=== PATIENT | male | born 1945 | race Hispanic/Latino ===

== ENCOUNTER 2023-07-30 11:44 | Inpatient (IN) | payer MEDICARE, MEDICAID ==
[2023-07-30] MEDS ORDERED: Bisacodyl 10 MG SUPP PR PRN (15:17)
[2023-07-30 19:51] VITALS: BMI 23.1
[2023-07-30] MEDS: Mometasone/Formoterol 200/5 60 PUFF INH SCH (21:06)
[2023-07-30] MEDS: Magnesium Oxide 400 MG TAB PO SCH (21:07)
[2023-07-30] MEDS: Famotidine 20 MG TAB PO SCH (21:07)
[2023-07-30] MEDS: Montelukast Sodium 10 mg Tablet PO SCH (21:07)
[2023-07-31 06:06] LABS: Anion Gap 13 mmol/L (10-20); BUN (Urea Nitrogen) 19 mg/dL (8.4-25.7); Calc. Creatinine Clearance 114 mL/min (70-130); Calcium 7.8 mg/dL (7.8-10.44); Carbon Dioxide 22 mmol/L (23-31); Chloride 104 mmol/L (98-107); Estimated GFR 102; Glucose 136 mg/dL (83-110); Sodium 136 mmol/L (136-145)
[2023-07-31 06:26] LABS: Critical Call Chemistry NUR.FCL@0620; Potassium 2.6 mmol/L (3.5-5.1)
[2023-07-31 06:43] LABS: Hematocrit 40.2 % (42.0-52.0); Hemoglobin 14.4 g/dL (14.0-18.0); Mean Corpuscular HGB CONC 35.8 g/dL (32.0-36.0); Mean Corpuscular Hemoglobin 32.3 pg (27.0-31.0); Mean Corpuscular Volume 90.1 fl (78.0-98.0); Mean Platelet Volume 5.9 fL (7.4-10.4); Platelet Count 98 10x3/uL (130-400); RBC Distribution Width 10.4 % (11.5-14.5); Red Blood Cell (RBC) Count 4.46 mill/uL (4.70-6.10); White Blood Cell (WBC) Count 24.5 10x3/uL (4.8-10.8)
[2023-07-31 06:44] LABS: Band 3 % (5-11); Lymphocytes 3 % (21-51); MDiff Complete? YES; Monocytes 4 % (0-10); Neutrophil 90 % (42-75); Platelet Adequacy Comment Appears Decreased
[2023-07-31] MEDS: DULoxetine 30 MG CAP PO SCH (10:29)
[2023-07-31] MEDS: Folic Acid 1 MG TAB PO SCH (10:29)
[2023-07-31] MEDS: Enoxaparin 40 MG (0.4 mL) SYRINGE SC SCH (10:30)
[2023-07-31] MEDS: Potassium Chloride 20 MEQ TAB PO SCH (10:30)
[2023-07-31] MEDS: Fish Oil 1,000 MG CAP PO SCH (10:31)
[2023-07-31] MEDS: Rivastigmine 9.5mg/24 Hour PATCH TOP SCH (10:32)
[2023-07-31] MEDS: Tamsulosin HCl 0.4 MG CAP PO SCH (10:33)
[2023-07-31] MEDS: Calcium Carbonate 500 MG TAB PO SCH (10:33)
[2023-07-31] MEDS: Spironolactone 25 MG TAB PO SCH (10:34)
[2023-07-31] MEDS: NALTREXONE HCL 50 MG PO SCH (10:55)
[2023-07-31] MEDS: Albuterol 200 PUFF (6.7GM INHALER) INH PRN (12:19)
[2023-07-31] MEDS: Meropenem 1 GM in Sodium Chloride 0.9% 100 ML IVPB SCH ×2 (12:54→20:54)
[2023-07-31 12:59] LABS: Bilirubin Negative (Negative); Blood, Urine Trace (Negative); Glucose, Urine (Dipstick) Negative (Negative); Ketone, Urine Negative (Negative); Leukocyte Negative (Negative); Nitrite Positive (Negative); Protein, Urine (Dipstick) Negative (Neg-Trace); Urobilinogen 0.2 mg/dL (Less than 2)
[2023-07-31 13:07] LABS: Bacteria/HPF 3+ HPF (None Seen); CAUTI Indications for Culture Alt mental st,lethar; Clarity Hazy (Clear); RBC/HPF 0-3 HPF (0-3); Squamous Epithelial 0-3 HPF (0-3); WBC/HPF 0-3 HPF (0-3)
[2023-07-31 13:08] LABS: Urine Culture Reflex No No
[2023-07-31] MEDS ORDERED: Ibuprofen 200 MG TAB PO PRN (20:02)
[2023-07-31] MEDS: Ibuprofen 200 MG TAB PO PRN (21:20)
[2023-08-01 06:10] LABS: Anion Gap 10 mmol/L (10-20); BUN (Urea Nitrogen) 19 mg/dL (8.4-25.7); Calc. Creatinine Clearance 123 mL/min (70-130); Calcium 7.7 mg/dL (7.8-10.44); Carbon Dioxide 24 mmol/L (23-31); Chloride 109 mmol/L (98-107); Estimated GFR 104; Glucose 112 mg/dL (83-110); Sodium 140 mmol/L (136-145)
[2023-08-01 07:01] LABS: #Basophils 0.1 thou/uL (0.0-0.2); #Monocytes 0.9 thou/uL (0.11-0.59); #Neutrophils 15.7 thou/uL (1.40-6.50); %Basophils 0.7 % (0.0-1.0); %Eosinophils 0.1 % (0.0-10.0); %Lymphocytes 4.6 % (21.0-51.0); %Monocytes 5.2 % (0.0-10.0); %Neutrophils 89.3 % (42.0-75.0); Band 1 % (5-11); Hematocrit 38.3 % (42.0-52.0); Hemoglobin 13.6 g/dL (14.0-18.0); Lymphocytes 5 % (21-51); MDiff Complete? YES; Mean Corpuscular HGB CONC 35.6 g/dL (32.0-36.0); Mean Corpuscular Hemoglobin 32.1 pg (27.0-31.0); Mean Corpuscular Volume 90.2 fl (78.0-98.0); Mean Platelet Volume 6.8 fL (7.4-10.4); Monocytes 6 % (0-10); Neutrophil 88 % (42-75); Platelet Adequacy Comment Appears Decreased; Platelet Count 65 10x3/uL (130-400); RBC Distribution Width 10.7 % (11.5-14.5); Red Blood Cell (RBC) Count 4.24 mill/uL (4.70-6.10); White Blood Cell (WBC) Count 17.6 10x3/uL (4.8-10.8)
[2023-08-01] MEDS: Potassium Chloride 20 MEQ TAB PO SCH (09:54)
[2023-08-01] MEDS: Digoxin 0.125 MG TAB PO SCH (09:55)
[2023-08-01] MEDS ORDERED: Nystatin Powder 15 GM BOT TOP PRN (11:29)
[2023-08-01] MEDS: Nystatin 500,000 UNITS/5 ML UDCUP SSW SCH (13:05)
[2023-08-01] MEDS: Cyclobenzaprine 10 MG TAB PO PRN (18:04)
[2023-08-02 06:28] LABS: Anion Gap 13 mmol/L (10-20); BUN (Urea Nitrogen) 17 mg/dL (8.4-25.7); Calc. Creatinine Clearance 131 mL/min (70-130); Calcium 7.7 mg/dL (7.8-10.44); Carbon Dioxide 22 mmol/L (23-31); Chloride 109 mmol/L (98-107); Estimated GFR 106; Glucose 88 mg/dL (83-110); Potassium 3.4 mmol/L (3.5-5.1); Sodium 141 mmol/L (136-145)
[2023-08-02 07:14] LABS: #Basophils 0.1 thou/uL (0.0-0.2); #Lymphocytes 0.8 thou/uL (1.20-3.40); #Monocytes 0.7 thou/uL (0.11-0.59); #Neutrophils 16.5 thou/uL (1.40-6.50); %Basophils 0.4 % (0.0-1.0); %Eosinophils 0.1 % (0.0-10.0); %Lymphocytes 4.3 % (21.0-51.0); %Monocytes 3.9 % (0.0-10.0); %Neutrophils 91.3 % (42.0-75.0); Hematocrit 40.6 % (42.0-52.0); Hemoglobin 14.3 g/dL (14.0-18.0); Mean Corpuscular HGB CONC 35.3 g/dL (32.0-36.0); Mean Corpuscular Hemoglobin 32.5 pg (27.0-31.0); Mean Corpuscular Volume 92.2 fl (78.0-98.0); Mean Platelet Volume 5.9 fL (7.4-10.4); Platelet Adequacy Comment Appears Decreased; Platelet Count 70 10x3/uL (130-400); RBC Distribution Width 11.1 % (11.5-14.5); White Blood Cell (WBC) Count 18.1 10x3/uL (4.8-10.8)
[2023-08-02 07:25] LABS: MDiff Complete? YES
[2023-08-02] MEDS: Thiamine 100 MG TAB PO SCH (09:27)
[2023-08-02] MEDS: Potassium Chloride 20 MEQ TAB PO SCH (09:27)
[2023-08-02] MEDS: Nystatin 500,000 UNITS/5 ML UDCUP SSW SCH (17:01)
[2023-08-03 06:15] LABS: Anion Gap 13 mmol/L (10-20); BUN (Urea Nitrogen) 13 mg/dL (8.4-25.7); Calc. Creatinine Clearance 126 mL/min (70-130); Carbon Dioxide 23 mmol/L (23-31); Chloride 109 mmol/L (98-107); Estimated GFR 105; Glucose 88 mg/dL (83-110); Potassium 3.3 mmol/L (3.5-5.1); Sodium 142 mmol/L (136-145)
[2023-08-03 06:21] LABS: #Basophils 0.1 thou/uL (0.0-0.2); #Eosinphils 0.1 thou/uL (0.0-0.7); #Lymphocytes 0.8 thou/uL (1.20-3.40); #Neutrophils 13.6 thou/uL (1.40-6.50); %Basophils 0.4 % (0.0-1.0); %Eosinophils 0.9 % (0.0-10.0); %Lymphocytes 5.4 % (21.0-51.0); %Monocytes 6.6 % (0.0-10.0); %Neutrophils 86.8 % (42.0-75.0); Hematocrit 37.6 % (42.0-52.0); Hemoglobin 13.4 g/dL (14.0-18.0); Lymphocytes 4 % (21-51); MDiff Complete? YES; Mean Corpuscular HGB CONC 35.5 g/dL (32.0-36.0); Mean Corpuscular Hemoglobin 32.6 pg (27.0-31.0); Mean Corpuscular Volume 91.9 fl (78.0-98.0); Mean Platelet Volume 6.4 fL (7.4-10.4); Monocytes 6 % (0-10); Neutrophil 90 % (42-75); Platelet Adequacy Comment Appears Decreased; Platelet Count 67 10x3/uL (130-400); RBC Distribution Width 11.3 % (11.5-14.5); Red Blood Cell (RBC) Count 4.09 mill/uL (4.70-6.10); White Blood Cell (WBC) Count 15.7 10x3/uL (4.8-10.8)
[2023-08-03 14:18] LABS: Calcium 7.6 mg/dL (7.8-10.44)
[2023-08-05] MEDS: hydrOXYzine 25 MG TAB PO PRN (23:44)
[2023-08-07] MEDS: Fluconazole 100 MG TAB PO SCH (20:51)
[2023-08-08] MEDS ORDERED: Fluconazole 100 MG TAB PO SCH (09:00)
[2023-08-08] MEDS: traMADol HCl 50 MG TAB PO PRN (19:53)
[2023-08-09 09:51] LABS: AST (SGOT) 17 U/L (5-34); Potassium 4.1 mmol/L (3.5-5.1); Protein, Total 3.9 g/dL (5.8-8.1)
[2023-08-09 09:54] LABS: ALT (SGPT) 33 U/L (8-55); Albumin 2.1 g/dL (3.4-4.8); Alkaline Phosphatase 70 U/L (40-110); Anion Gap 12 mmol/L (10-20); BUN (Urea Nitrogen) 5 mg/dL (8.4-25.7); Bilirubin, Total 0.9 mg/dL (0.2-1.2); Calc. Creatinine Clearance 134 mL/min (70-130); Calcium 7.8 mg/dL (7.8-10.44); Carbon Dioxide 24 mmol/L (23-31); Chloride 104 mmol/L (98-107); Estimated GFR 107; Glucose 82 mg/dL (83-110); Sodium 135 mmol/L (136-145)
[2023-08-10 08:46] LABS: #Eosinphils 0.1 thou/uL (0.0-0.7); #Lymphocytes 1.1 thou/uL (1.20-3.40); #Monocytes 0.4 thou/uL (0.11-0.59); #Neutrophils 3.1 thou/uL (1.40-6.50); %Basophils 0.9 % (0.0-1.0); %Eosinophils 2.9 % (0.0-10.0); %Lymphocytes 23.1 % (21.0-51.0); %Monocytes 7.5 % (0.0-10.0); %Neutrophils 65.5 % (42.0-75.0); Hematocrit 33.9 % (42.0-52.0); Hemoglobin 11.9 g/dL (14.0-18.0); Mean Corpuscular HGB CONC 35.2 g/dL (32.0-36.0); Mean Corpuscular Hemoglobin 32.3 pg (27.0-31.0); Mean Corpuscular Volume 91.7 fl (78.0-98.0); Mean Platelet Volume 6.3 fL (7.4-10.4); Platelet Count 156 10x3/uL (130-400); RBC Distribution Width 11.4 % (11.5-14.5); Red Blood Cell (RBC) Count 3.69 mill/uL (4.70-6.10); White Blood Cell (WBC) Count 4.7 10x3/uL (4.8-10.8)
[2023-08-11] MEDS ORDERED: traMADol HCl 50 MG TAB PO PRN (15:59)
[2023-08-11] MEDS: traMADol HCl 50 MG TAB PO PRN (21:30)
[2023-08-15 09:29] LABS: #Basophils 0.1 thou/uL (0.0-0.2); #Eosinphils 0.1 thou/uL (0.0-0.7); #Lymphocytes 2.1 thou/uL (1.20-3.40); #Monocytes 0.6 thou/uL (0.11-0.59); #Neutrophils 3.5 thou/uL (1.40-6.50); %Basophils 1.3 % (0.0-1.0); %Eosinophils 1.5 % (0.0-10.0); %Lymphocytes 32.7 % (21.0-51.0); %Neutrophils 55.5 % (42.0-75.0); Hematocrit 37.3 % (42.0-52.0); Mean Corpuscular HGB CONC 34.8 g/dL (32.0-36.0); Mean Corpuscular Hemoglobin 31.8 pg (27.0-31.0); Mean Corpuscular Volume 91.3 fl (78.0-98.0); Mean Platelet Volume 5.5 fL (7.4-10.4); Platelet Count 470 10x3/uL (130-400); RBC Distribution Width 11.2 % (11.5-14.5); Red Blood Cell (RBC) Count 4.08 mill/uL (4.70-6.10); White Blood Cell (WBC) Count 6.3 10x3/uL (4.8-10.8)
[2023-08-15 09:44] LABS: Digoxin 0.68 ng/mL (0.8-2.0)
[2023-08-15 09:46] LABS: ALT (SGPT) 23 U/L (8-55); AST (SGOT) 18 U/L (5-34); Albumin 2.9 g/dL (3.4-4.8); Alkaline Phosphatase 95 U/L (40-110); Anion Gap 13 mmol/L (10-20); BUN (Urea Nitrogen) 14 mg/dL (8.4-25.7); Bilirubin, Total 0.6 mg/dL (0.2-1.2); Calc. Creatinine Clearance 108 mL/min (70-130); Calcium 8.9 mg/dL (7.8-10.44); Carbon Dioxide 24 mmol/L (23-31); Chloride 100 mmol/L (98-107); Estimated GFR 100; Globulin 2.6 g/dL (2.4-3.5); Glucose 98 mg/dL (83-110); Protein, Total 5.5 g/dL (5.8-8.1); Sodium 132 mmol/L (136-145)
[2023-08-15] MEDS: Digoxin 0.125 MG TAB PO SCH (10:51)
[2023-08-15 11:32] LABS: Bilirubin Negative (Negative); Blood, Urine Negative (Negative); Clarity Clear (Clear); Glucose, Urine (Dipstick) Negative (Negative); Ketone, Urine Negative (Negative); Leukocyte Negative (Negative); Nitrite Negative (Negative); Protein, Urine (Dipstick) Negative (Neg-Trace); Urobilinogen 0.2 mg/dL (Less than 2)
[2023-08-15 11:35] LABS: CAUTI Indications for Culture Alt mental st,lethar; RBC/HPF None Seen HPF (0-3); Squamous Epithelial 0-3 HPF (0-3); WBC/HPF 0-3 HPF (0-3)
[2023-08-15 11:37] LABS: Bacteria/HPF Rare-Few HPF (None Seen)
[2023-08-15 11:38] LABS: Urine Culture Reflex No No
[2023-08-15] MEDS: Sodium Chloride 0.9% 500 ML IV SCH (15:07)
[2023-08-16] MEDS: Digoxin 0.125 MG TAB PO SCH (08:42)
[2023-08-16] MEDS ORDERED: Albuterol 2.5 MG (3 mL) NEB NEB SCH (13:00)
[2023-08-16] MEDS: Ipratropium/Albuterol 3 ML NEB NEB SCH (14:22)
[2023-08-18] MEDS ORDERED: Pancrelipase DR 12,000 1 CAP PO PRN (11:57)
[2023-08-18] MEDS: Pancrelipase DR 12,000 1 CAP PO SCH (12:04)
[2023-08-18] MEDS: Ipratropium/Albuterol 3 ML NEB NEB SCH (12:08)
[2023-08-22] MEDS: traMADol HCl 50 MG TAB PO PRN (08:41)
[2023-08-22] MEDS: Bisacodyl 5 MG TAB PO PRN (09:00)
[2023-08-22] MEDS: Senokot S 8.6-50 MG TAB PO PRN (20:50)
[2023-08-26] MEDS: Furosemide 20 MG TAB PO SCH (09:25)
[2023-08-27 05:13] LABS: #Basophils 0.1 thou/uL (0.0-0.2); #Monocytes 0.7 thou/uL (0.11-0.59); #Neutrophils 5.4 thou/uL (1.40-6.50); %Basophils 1.1 % (0.0-1.0); %Eosinophils 0.2 % (0.0-10.0); %Lymphocytes 24.7 % (21.0-51.0); %Monocytes 8.5 % (0.0-10.0); %Neutrophils 65.5 % (42.0-75.0); Hematocrit 36.4 % (42.0-52.0); Hemoglobin 12.8 g/dL (14.0-18.0); Mean Corpuscular HGB CONC 35.3 g/dL (32.0-36.0); Mean Corpuscular Hemoglobin 31.7 pg (27.0-31.0); Mean Corpuscular Volume 89.8 fl (78.0-98.0); Mean Platelet Volume 5.3 fL (7.4-10.4); Platelet Count 290 10x3/uL (130-400); RBC Distribution Width 11.2 % (11.5-14.5); Red Blood Cell (RBC) Count 4.05 mill/uL (4.70-6.10); White Blood Cell (WBC) Count 8.2 10x3/uL (4.8-10.8)
[2023-08-27 05:26] LABS: Anion Gap 12 mmol/L (10-20); BUN (Urea Nitrogen) 13 mg/dL (8.4-25.7); Calc. Creatinine Clearance 101 mL/min (70-130); Calcium 8.7 mg/dL (7.8-10.44); Carbon Dioxide 20 mmol/L (23-31); Chloride 106 mmol/L (98-107); Estimated GFR 98; Glucose 96 mg/dL (83-110); Potassium 3.9 mmol/L (3.5-5.1); Sodium 134 mmol/L (136-145)
[2023-08-27] MEDS: Furosemide 20 MG TAB PO SCH (08:42)
[2023-09-02 16:22] LABS: Bilirubin Negative (Negative); Blood, Urine Moderate (Negative); Glucose, Urine (Dipstick) Negative (Negative); Ketone, Urine Negative (Negative); Leukocyte Trace (Negative); Nitrite Negative (Negative); Protein, Urine (Dipstick) Negative (Neg-Trace); Specific Gravity, Urine 1.015 (1.005-1.030); Urobilinogen 0.2 mg/dL (Less than 2); pH, Urine 6.5 (5.0-9.0)
[2023-09-02 16:23] LABS: Clarity Hazy (Clear)
[2023-09-02 16:29] LABS: Bacteria/HPF 2+ HPF (None Seen); Squamous Epithelial 0-3 HPF (0-3); WBC/HPF 0-3 HPF (0-3)
[2023-09-04 05:59] VITALS: TEMP 98
[2023-09-04 10:20] VITALS: BP 103/65
== END 2023-09-04 18:30 | DRG 947 ==
LOC: BURMED 14:30
PROVIDERS: ADMIT Family Medicine; ATTEND Nurse Practitioner
DX: R53.81 Other malaise (principal); J69.0 Pneumonitis due to inhalation of food and vomit; J96.00 Acute respiratory failure, unspecified whether with hypoxia or hypercapnia; J44.1 Chronic obstructive pulmonary disease with (acute) exacerbation; I48.91 Unspecified atrial fibrillation; F03.90 Unspecified dementia, unspecified severity, without behavioral disturbance, psychotic disturbance, mood disturbance, and anxiety; E87.6 Hypokalemia; R33.9 Retention of urine, unspecified; Z79.899 Other long term (current) drug therapy; Z98.41 Cataract extraction status, right eye; Z98.42 Cataract extraction status, left eye; Z90.49 Acquired absence of other specified parts of digestive tract; Z98.890 Other specified postprocedural states; N40.0 Benign prostatic hyperplasia without lower urinary tract symptoms; Z86.711 Personal history of pulmonary embolism
CPT/HCPCS: 36415; 36416; 71045; 80048; 80053; 80162; 81001; 84484; 85025; 87040; 87086; 94640; 94664; J1650; J2185; J3490; J7030; J7620